=== PATIENT | male | born 1955 | race Caucasian/White ===

== ENCOUNTER 2017-10-02 20:37 | Emergency (ER) | payer BC ==
[~2017-10-02] VITALS: Ht 167.6 cm; Wt 74.9 kg
[2017-10-02 21:07] LABS: HEMATOCRIT 42.7 % (38.0-50.0); HEMOGLOBIN 14.6 G/DL (12.5-16.6); MCH 31.6 PG (29.0-34.0); MCHC 34.2 G/DL (30.0-36.0); MCV 92.4 FL (86-99); PLATELET COUNT 266 K/uL (156-360); RBC DIS.WIDTH-CV 13.3 % (11.8-14.6); RBC DIS.WIDTH-SD 45.4 % (39-53); RED BLOOD COUNT 4.62 M/uL (4.00-5.50); WHITE BLOOD COUNT 13.1 K/uL (4.1-10.2)
[2017-10-02 21:17] LABS: CHLORIDE 108 mEq/L (99-109); POTASSIUM 3.8 mEq/L (3.7-5.4); SODIUM 142 mEq/L (136-147)
[2017-10-02 21:19] LABS: GLUCOSE 119 mg/dL (70-99)
[2017-10-02 21:23] LABS: CREATININE 0.9 mg/dL (0.6-1.3); GFR ESTIMATE (CALCULATED) > 59 mL/min/ (58.99-99999)
[2017-10-02 21:24] LABS: UREA NITROGEN (BUN) 23 mg/dL (9-23)
[2017-10-02 21:28] LABS: TROP-I INTERPRETATION NEGATIVE; TROPONIN-I < 0.01 ng/mL (0.0-0.30)
[2017-10-02] MEDS ORDERED: PREDNISONE20 MG PO (23:30)
[2017-10-02] MEDS ORDERED: ZITHROMAX250 MG PO (23:30)
[2017-10-02] MEDS ORDERED: VENTOLIN HFA18 GM IH (23:30)
[2017-10-02] MEDS ORDERED: VALIUM5 MG PO (23:31)
[2017-10-02] MEDS ORDERED: NAPROSYN500 MG PO (23:31)
[2017-10-03 00:55] VITALS: BP 110/76
== END 2017-10-03 00:56 | disposition home or self-care (01) ==
LOC: EME 20:37
DX: S01.21XA Laceration without foreign body of nose, initial encounter (principal); J44.1 Chronic obstructive pulmonary disease with (acute) exacerbation; R55 Syncope and collapse; S16.1XXA Strain of muscle, fascia and tendon at neck level, initial encounter; R04.0 Epistaxis; W18.30XA Fall on same level, unspecified, initial encounter; Y93.01 Activity, walking, marching and hiking; Z23 Encounter for immunization; E11.9 Type 2 diabetes mellitus without complications; E78.5 Hyperlipidemia, unspecified; I10 Essential (primary) hypertension; I25.2 Old myocardial infarction; F17.200 Nicotine dependence, unspecified, uncomplicated; Z71.6 Tobacco abuse counseling
CPT/HCPCS: 70450; 71046; 72125; 80048; 84484; 85027; 93005; 94640; 99281; 99285; J7512

== ENCOUNTER 2017-12-21 06:27 | Emergency (ER) | payer OTHER, BC ==
[~2017-12-21] VITALS: Ht 167.6 cm; Wt 74.2 kg
[~2017-12-21 06:27] MED LIST: NAPROSYN500 MG PO; PREDNISONE20 MG PO; VALIUM5 MG PO; VENTOLIN HFA18 GM IH; ZITHROMAX250 MG PO
[2017-12-21] MEDS ORDERED: PROVENTIL HFA6.7 GM IH (07:55)
[2017-12-21] MEDS ORDERED: PERCOCET 5/31 TABLET PO (07:55)
[2017-12-21] MEDS ORDERED: ZOFRAN4 MG PO (07:55)
[2017-12-21 08:15] VITALS: BP 169/96
== END 2017-12-21 08:16 | disposition home or self-care (01) ==
LOC: EME 06:27
DX: S22.32XA Fracture of one rib, left side, initial encounter for closed fracture (principal); J44.9 Chronic obstructive pulmonary disease, unspecified; V49.60XA Unspecified car occupant injured in collision with unspecified motor vehicles in traffic accident, initial encounter; F17.200 Nicotine dependence, unspecified, uncomplicated
CPT/HCPCS: 71100; 99281; 99283

== ENCOUNTER → 2018-01-01 | Outpatient (CLI) | payer OTHER, BC ==
[~2018-01-01] MED LIST changes: +PERCOCET 5/31 TABLET PO; +PROVENTIL HFA6.7 GM IH; +ZOFRAN4 MG PO
== END | disposition home or self-care (01) ==
LOC: RAD 08:18
DX: R07.81 Pleurodynia (principal)
CPT/HCPCS: 71100